=== PATIENT | female | born 1995 | race Caucasian/White ===

== ENCOUNTER → 2025-07-02 14:08 | Outpatient (CLI) | payer BC, SELFPAY ==
[2025-07-02 14:33] LABS: Add Manual Diff / Slide Review NO; Hematocrit 38.6 % (36-46); Hemoglobin 13.2 g/dL (12.0-16.0); Lymphocytes Absolute Auto 1700 /uL (1100-4500); Mean Corpuscular HGB Conc 34.3 % (30-36); Mean Corpuscular Hemoglobin 28.8 PG (26-34); Mean Corpuscular Volume 84.0 fL (80-100); Platelet Count 254 X10^3/uL (150-400)
[2025-07-02 14:52] LABS: Alanine Aminotransferase 11 IU/L (<35); Blood Urea Nitrogen 12 mg/dL (7-17); Estimated Glomerular Filt Rate > 60 mL/min (>60); Uric Acid 2.5 mg/dL (2.5-6.2)
[2025-07-02 15:22] LABS: Hepatitis B Surface Antigen NEGATIVE s/c (NEGATIVE)
[2025-07-02 15:42] LABS: HIV 1 & 2 Ab/Ag 4th Gen Combo NEGATIVE (NEGATIVE); Hep C Virus Ab w/Reflex Quant NEGATIVE s/c (NEGATIVE)
== END ==
PROVIDERS: Referring Provider Family Medicine; Visit Provider Family Medicine
DX: O09.299 Supervision of pregnancy with other poor reproductive or obstetric history, unspecified trimester (principal)
CPT/HCPCS: 36415; 80055; 82565; 84450; 84460; 84520; 84550; 86787; 86803; 86850; 86900; 86901; 87389

== ENCOUNTER → 2025-07-24 15:20 | Outpatient (CLI) | payer BC, SELFPAY ==
[2025-07-24 16:33] LABS: Natera Collection Specimen Collected
[2025-07-24 17:03] LABS: Appearance Urine UA CLEAR; Bilirubin Urine UA NEGATIVE (NEGATIVE); Color Urine UA YELLOW; Glucose Urine UA NEGATIVE (Negative); Ketones Urine UA NEGATIVE (NEGATIVE); Leukocyte Esterase Urine UA NEGATIVE (NEGATIVE); Nitrite Urine UA NEGATIVE (Negative); Occult Blood Urine UA NEGATIVE (Negative); Protein Urine UA NEGATIVE (Negative); Specific Gravity Urine UA <=1.005 (1.000-1.035); Urobilinogen Urine UA 0.2 E.U./dL (0.2)
[2025-07-24 17:04] LABS: pH Urine UA 5.5 (4.5-8.0)
[2025-07-24 17:16] LABS: Protein (Total) Urine Random 13 mg/dL (0-12); Protein Creatinine Ratio Urine 0.55 GRAM/24H
== END ==
PROVIDERS: PCP Family Medicine; Referring Provider Family Medicine; Visit Provider Family Medicine
DX: O09.299 Supervision of pregnancy with other poor reproductive or obstetric history, unspecified trimester (principal); O09.91 Supervision of high risk pregnancy, unspecified, first trimester
CPT/HCPCS: 36415; 81003; 82570; 84156; 87086

== ENCOUNTER → 2025-08-21 15:18 | Outpatient (CLI) | payer BC, SELFPAY | PROVIDERS: PCP Family Medicine; Referring Provider Family Medicine; Visit Provider Family Medicine | DX: Z34.92 Encounter for supervision of normal pregnancy, unspecified, second trimester (principal); Z3A.16 16 weeks gestation of pregnancy | CPT/HCPCS: 36415; 82105 ==